=== PATIENT | female | born 1980 | race Caucasian/White ===

== ENCOUNTER 2018-10-12 10:23 | Emergency (ER) | payer MEDICARE, MEDICAID ==
--- NOTE | 2018-10-12 10:48 | EDM.PDOCBH ---
ED HPI GENERAL MEDICAL PROBLEM - General Chief Complaint: Behavioral/Psych Stated Complaint: SUICIDIAL Time Seen by Provider: 10/12/18 10:23 Source of Information: Reports: Patient, Family (friend, male) History Limitations: Reports: No Limitations - History of Present Illness INITIAL COMMENTS - FREE TEXT/NARRATIVE: 38 ye.o.w.f with a h/o depression, H/O suicidal ideation and DOD, came with a friend to the ed because of suicidal ideation, hearing voices. Pt did not take her psych meds for over a month. Her DAD a week ago. Pt feels nauseated because she is anxious (?). No trauma. Pt was moving in this area recently and has no Psych Doc yet. No F/C no physical pain. No other acute physical complains , pt denied . BP 133/81 RR 19 Pulse ox 99% on RA, Temp 36.8 Pulse 81 Onset Date: 10/07/18 Onset Time: 08:00 Duration: Day(s):, Intermittent Location: Reports: Generalized Quality: Reports: Same as Previous Episode Severity: Mild Improves with: Reports: Medication Worsens with: Reports: Other Context: Reports: Other (DAD a week ago) Associated Symptoms: Reports: Other - Related Data Allergies Allergy/AdvReac Type Severity Reaction Status Date / Time Penicillins Allergy Airway Verified 10/12/18 10:38 Tightness quetiapine [From Seroquel] Allergy Change Verified 10/12/18 10:38 Mental Status venlafaxine [From Effexor] Allergy Change Verified 10/12/18 10:38 Mental Status Home Meds: Home Meds ARIPiprazole [Abilify] 5 mg PO DAILY 10/12/18 [History] ClonazePAM [KlonoPIN] 0.5 mg PO DAILY 10/12/18 [History] Escitalopram [Lexapro] 10 mg PO DAILY 10/12/18 [History] Methylphenidate HCl [Ritalin] 10 mg PO DAILY 10/12/18 [History] OLANZapine [ZyPREXA] 5 mg PO DAILY 10/12/18 [History] lamoTRIgine [Lamictal] 100 mg PO DAILY 10/12/18 [History] ED ROS GENERAL - Review of Systems Review Of Systems: See Below Constitutional: Reports: No Symptoms HEENT: Reports: No Symptoms Respiratory: Reports: No Symptoms Cardiovascular: Reports: No Symptoms Endocrine: Reports: No Symptoms GI/Abdominal: Reports: Nausea : Reports: No Symptoms Musculoskeletal: Reports: No Symptoms Skin: Reports: No Symptoms Neurological: Reports: No Symptoms Psychiatric: Reports: Depression, Other (hears voices) Hematologic/Lymphatic: Reports: No Symptoms Immunologic: Reports: No Symptoms ED EXAM, BEHAVIORAL HEALTH - Physical Exam Exam: See Below Exam Limited By: No Limitations General Appearance: Alert, WD/WN, Mild Distress Eye Exam: Bilateral Eye: Normal Inspection Ears: Normal External Exam Nose: Normal Inspection, Normal Mucosa, No Blood Throat/Mouth: Normal Inspection, Normal Lips, Normal Voice, No Airway Compromise Head: Atraumatic, Normocephalic Neck: Normal Inspection, Supple, Non-Tender, Full Range of Motion Respiratory/Chest: No Respiratory Distress, Lungs Clear, Normal Breath Sounds, Chest Non-Tender Cardiovascular: Normal Peripheral Pulses, Regular Rate, Rhythm, No Edema, No Gallop, No Murmur GI/Abdominal: Normal Bowel Sounds, Soft, Non-Tender, No Organomegaly, No Abnormal Bruit, No Mass, Pelvis Stable (Female) Exam: Deferred Rectal (Female) Exam: Deferred Back Exam: Normal Inspection, Full Range of Motion Extremities: Normal Inspection, Normal Range of Motion, Non-Tender, No Pedal Edema Neurological: Alert, Normal Mood/Affect, CN II-XII Intact, Normal Cognition, No Motor/Sensory Deficits, Oriented x 3 Psychiatric: Alert, Depressed Mood, Flat Affect, Suicidal Thoughts Skin Exam: Warm, Dry, Intact, Normal color, No rash EKG INTERPRETATION EKG Date: 10/12/18 Time: 12:10 Rhythm: NSR Rate (Beats/Min): 70 [place]: Normal P-Wave: Present QRS: Normal ST-T: Normal QT: Normal Comparison: NA - No Prior EKG COURSE, BEHAVIORAL HEALTH COMP - Course Vital Signs: Last Vital Signs Temp 36.8 C 10/12/18 10:42 Pulse 92 10/12/18 10:42 Resp 18 10/12/18 10:42 BP 133/81 10/12/18 10:42 Pulse Ox 99 10/12/18 10:42 38 ye.o.w.f with a h/o depression, H/O suicidal ideation and DOD, came with a friend to the ed because of suicidal ideation, hearing voices. Pt did not take her psych meds for over a month. Her DAD a week ago. Pt feels nauseated because she is anxious (?). No trauma. Pt was moving in this area recently and has no Psych Doc yet. No F/C no physical pain. No other acute physical complains , pt denied . BP 133/81 RR 19 Pulse ox 99% on RA, Temp 36.8 Pulse 81 PE: WNWD W F with nausea, suicidal ideation Labs: CBC, BMP Nl, UDS pos Tricyclix ETOH neg ECG: NSR Impression: Suicidal ideation Tx: Refused anti nausea meds. Reexam: Pt was stable in the ED Plan: Dr. Gardner, Psychiatrist, at [facility] accepted the pt for further care, transfer by [employer] OKed Orders, Labs, Meds: Active Orders 24 hr Category Date Time Status EKG 12 Lead [EK] Routine Ther 10/12/18 12:06 Ordered Laboratory Tests 10/12/18 10/12/18 10/12/18 Range/Units 11:10 11:10 11:10 WBC 4.9 (4.5-12.0) X10-3/uL RBC 4.85 (3.23-5.20) x10(6)uL Hgb 14.9 (11.5-15.5) g/dL Hct 43.4 (30.0-51.3) % MCV 89.4 (80-96) fL MCH 30.7 (27.7-33.6) pg MCHC 34.3 (32.2-35.4) g/dL RDW 14.0 (11.5-15.5) % Plt Count 225 (125-369) X10(3)uL MPV 8.3 (7.4-10.4) fL Neut % (Auto) 61.7 (46-82) % Lymph % (Auto) 30.3 (13-37) % [place] % (Auto) 5.7 (4-12) % Eos % (Auto) 2 (1.0-5.0) % Baso % (Auto) 1 (0-2) % Neut # (Auto) 3.0 (1.6-8.3) # Lymph # (Auto) 1.5 (0.6-5.0) # [place] # (Auto) 0.3 (0.0-1.3) # Eos # (Auto) 0.1 (0.0-0.8) # Baso # (Auto) 0.0 (0.0-0.2) # Sodium 142 (135-145) mmol/L Potassium 4.3 (3.5-5.3) mmol/L Chloride 106 (100-110) mmol/L Carbon Dioxide 28 (21-32) mmol/L BUN 9 (7-18) mg/dL Creatinine 0.7 (0.55-1.02) mg/dL Est Cr Clr Drug Dosing TNP Estimated GFR (MDRD) > 60 (>60) BUN/Creatinine Ratio 12.9 (9-20) Glucose 81 (80-116) mg/dL Calcium 9.4 (8.6-10.2) mg/dL TSH, Ultra Sensitive 1.46 (0.36-3.74) IU/mL Urine HCG, Qual (NEGATIVE) Salicylates 3.6 (2.8-20.0) mg/dL Urine Opiates Screen (NEGATIVE) Ur Oxycodone Screen (NEGATIVE) Ur Propoxyphene Screen (NEGATIVE) Acetaminophen < 2 L (10-30) ug/mL Ur Barbituates Screen (NEGATIVE) Ur Tricyclics Screen (NEGATIVE) Ur Phencyclidine Scrn (NEGATIVE) Ur Amphetamine Screen (NEGATIVE) Urine MDMA Screen (NEGATIVE) U Benzodiazepines Scrn (NEGATIVE) U Cocaine Metab Screen (NEGATIVE) U Marijuana (THC) Screen (NEGATIVE) Ethyl Alcohol < 0.03 (<0.03) % 10/12/18 10/12/18 Range/Units 11:15 11:15 WBC (4.5-12.0) X10-3/uL RBC (3.23-5.20) x10(6)uL Hgb (11.5-15.5) g/dL Hct (30.0-51.3) % MCV (80-96) fL MCH (27.7-33.6) pg MCHC (32.2-35.4) g/dL RDW (11.5-15.5) % Plt Count (125-369) X10(3)uL MPV (7.4-10.4) fL Neut % (Auto) (46-82) % Lymph % (Auto) (13-37) % [place] % (Auto) (4-12) % Eos % (Auto) (1.0-5.0) % Baso % (Auto) (0-2) % Neut # (Auto) (1.6-8.3) # Lymph # (Auto) (0.6-5.0) # [place] # (Auto) (0.0-1.3) # Eos # (Auto) (0.0-0.8) # Baso # (Auto) (0.0-0.2) # Sodium (135-145) mmol/L Potassium (3.5-5.3) mmol/L Chloride (100-110) mmol/L Carbon Dioxide (21-32) mmol/L BUN (7-18) mg/dL Creatinine (0.55-1.02) mg/dL Est Cr Clr Drug Dosing Estimated GFR (MDRD) (>60) BUN/Creatinine Ratio (9-20) Glucose (80-116) mg/dL Calcium (8.6-10.2) mg/dL TSH, Ultra Sensitive (0.36-3.74) IU/mL Urine HCG, Qual Negative (NEGATIVE) Salicylates (2.8-20.0) mg/dL Urine Opiates Screen Negative (NEGATIVE) Ur Oxycodone Screen Negative (NEGATIVE) Ur Propoxyphene Screen Negative (NEGATIVE) Acetaminophen (10-30) ug/mL Ur Barbituates Screen Negative (NEGATIVE) Ur Tricyclics Screen Positive H (NEGATIVE) Ur Phencyclidine Scrn Negative (NEGATIVE) Ur Amphetamine Screen Negative (NEGATIVE) Urine MDMA Screen Negative (NEGATIVE) U Benzodiazepines Scrn Negative (NEGATIVE) U Cocaine Metab Screen Negative (NEGATIVE) U Marijuana (THC) Screen Negative (NEGATIVE) Ethyl Alcohol (<0.03) % Departure - Departure Time of Disposition: 14:16 Disposition: DC/Tfer to Psych Hosp/Unit 65 Condition: Fair Clinical Impression: Suicidal ideations - Discharge Information Referrals: Yg Nur MD [Primary Care Provider] - Forms: ED Department Discharge - My Orders Last 24 Hours: My Active Orders 10/12/18 12:06 EKG 12 Lead [EK] Routine - Assessment/Plan Last 24 Hours: My Active Orders 10/12/18 12:06 EKG 12 Lead [EK] Routine
[2018-10-12 11:31] LABS: ACETAMINOPHEN < 2 ug/mL (10-30)
== END 2018-10-12 14:30 ==
LOC: FB.ED 10:23
DX: F32.9 Major depressive disorder, single episode, unspecified (principal); F17.210 Nicotine dependence, cigarettes, uncomplicated; Z79.899 Other long term (current) drug therapy; Z88.0 Allergy status to penicillin; Z88.8 Allergy status to other drugs, medicaments and biological substances
CPT/HCPCS: 36415; 80048; 80305-QW; 81025; 84443; 85025; 93005; 99285; G0480

== ENCOUNTER 2018-10-22 20:57 | Emergency (ER) | payer MEDICARE, MEDICAID ==
[2018-10-22] MEDS ORDERED: Ondansetron 4 MG Tab.DIS PO ONE (22:27)
--- NOTE | 2018-10-22 22:32 | EDM.PDOC ---
ED HPI GENERAL MEDICAL PROBLEM - General Chief Complaint: General Stated Complaint: FLU Time Seen by Provider: 10/22/18 21:45 Source of Information: Reports: Patient History Limitations: Reports: No Limitations - History of Present Illness INITIAL COMMENTS - FREE TEXT/NARRATIVE: c/o N/V pt here with friend, onset sxs 2 AM, also frequent diarrhea not taken any meds no fever no pain Abdomen Pain Score (Numeric/FACES): 7 - Related Data Allergies Allergy/AdvReac Type Severity Reaction Status Date / Time Penicillins Allergy Airway Verified 10/22/18 21:44 Tightness quetiapine [From Seroquel] Allergy Change Verified 10/22/18 21:44 Mental Status venlafaxine [From Effexor] Allergy Change Verified 10/22/18 21:44 Mental Status Home Meds: Home Meds ARIPiprazole [Abilify] 5 mg PO DAILY 10/12/18 [History] ClonazePAM [KlonoPIN] 0.5 mg PO DAILY 10/12/18 [History] Escitalopram [Lexapro] 10 mg PO DAILY 10/12/18 [History] Methylphenidate HCl [Ritalin] 10 mg PO DAILY 10/12/18 [History] OLANZapine [ZyPREXA] 5 mg PO DAILY 10/12/18 [History] lamoTRIgine [Lamictal] 100 mg PO DAILY 10/12/18 [History] Metoclopramide HCl 10 mg PO Q6H #6 tablet 10/22/18 [Rx] Past Medical History Psychiatric History: Reports: Depression Social & Family History - Family History Family Medical History: Noncontributory - Tobacco Use Smoking Status *Q: Current Every Day Smoker Years of Tobacco use: 8 Packs/Tins Daily: 0.5 - Caffeine Use Caffeine Use: Reports: Coffee - Recreational Drug Use Recreational Drug Use: No ED ROS GENERAL - Review of Systems Review Of Systems: See Below Constitutional: Reports: No Symptoms HEENT: Reports: No Symptoms Respiratory: Reports: No Symptoms Cardiovascular: Reports: No Symptoms Endocrine: Reports: No Symptoms GI/Abdominal: Reports: Diarrhea, Nausea, Vomiting : Reports: No Symptoms Musculoskeletal: Reports: No Symptoms Skin: Reports: No Symptoms Neurological: Reports: No Symptoms Psychiatric: Reports: No Symptoms Hematologic/Lymphatic: Reports: No Symptoms Immunologic: Reports: No Symptoms ED EXAM, GENERAL - Physical Exam Exam: See Below Exam Limited By: No Limitations General Appearance: Alert, WD/WN, No Apparent Distress, Other (moves easily, not ill) Eye Exam: Bilateral Eye: Normal Inspection Ears: Normal External Exam, Normal Canal, Hearing Grossly Normal, Normal TMs Nose: Normal Inspection, Normal Mucosa, No Blood Throat/Mouth: Normal Inspection, Normal Lips, Normal Teeth, Normal Gums, Normal Oropharynx, Normal Voice, No Airway Compromise Head: Atraumatic, Normocephalic Neck: Normal Inspection, Supple, Non-Tender, Full Range of Motion. No: Lymphadenopathy (R), Lymphadenopathy (L) Respiratory/Chest: No Respiratory Distress, Lungs Clear, Normal Breath Sounds, No Accessory Muscle Use, Chest Non-Tender Cardiovascular: Regular Rate, Rhythm, No Edema, No Gallop, No Murmur, No Rub GI/Abdominal: Normal Bowel Sounds, Soft, Non-Tender, No Distention Back Exam: Normal Inspection Extremities: Normal Inspection, Normal Range of Motion, Non-Tender, No Pedal Edema Neurological: Alert, Oriented, CN II-XII Intact, Normal Cognition, Normal Gait, No Motor/Sensory Deficits Psychiatric: Normal Affect, Normal Mood Skin Exam: Warm, Dry, Intact, Normal Color, No Rash Lymphatic: No Adenopathy Course - Vital Signs Last Recorded V/S: Last Vital Signs Temp 37.1 C 10/22/18 20:57 Pulse 92 10/22/18 20:57 Resp 18 10/22/18 20:57 BP 124/72 10/22/18 20:57 Pulse Ox 100 10/22/18 20:57 Departure - Departure Time of Disposition: 22:27 Disposition: Home, Self-Care 01 Condition: Good Clinical Impression: Viral gastroenteritis - Discharge Information *PRESCRIPTION DRUG MONITORING PROGRAM REVIEWED*: No *COPY OF PRESCRIPTION DRUG MONITORING REPORT IN PATIENT ZACH: No Prescriptions: Metoclopramide HCl 10 mg PO Q6H #6 tablet Instructions: Viral Gastroenteritis, Adult Referrals: Yg Nur MD [Primary Care Provider] - Additional Instructions: For nausea, take metoclopramide 10 mg 1 tab every 6 hours as needed. Increase fluids. Rest. Use good handwashing. See your doctor in 2 days if not better. Return to ED if feeling worse.
== END 2018-10-22 22:38 | disposition home or self-care (01) ==
LOC: FB.ED 20:57
DX: A08.4 Viral intestinal infection, unspecified (principal); F32.9 Major depressive disorder, single episode, unspecified; F17.210 Nicotine dependence, cigarettes, uncomplicated; Z88.0 Allergy status to penicillin; Z88.8 Allergy status to other drugs, medicaments and biological substances
CPT/HCPCS: 87804; 99284; A9270

== ENCOUNTER 2018-11-22 11:15 | Emergency (ER) | payer MEDICARE, MEDICAID ==
--- NOTE | 2018-11-22 11:22 | EDM.PDOCBH ---
ED HPI GENERAL MEDICAL PROBLEM - General Stated Complaint: SUICIDIAL THOUGHTS AND HEARING VOICES Time Seen by Provider: 11/22/18 11:19 Source of Information: Reports: Patient, Family History Limitations: Reports: No Limitations - History of Present Illness INITIAL COMMENTS - FREE TEXT/NARRATIVE: 38 y.o.w.f with H/O depression, came to the Ed due to suicidal ideation with a plan to take a lot of pills(?). Denies N/V/D or any other acute medical issues. BP 144/74 Pulse 80 RR 16 Pulse ox 98% on RA Temp 36.8 Onset Date: 11/21/18 Onset Time: 18:00 Duration: Hour(s):, Intermittent Location: Reports: Generalized Quality: Reports: Other (suicidal ideation) Severity: Moderate Improves with: Reports: Other Worsens with: Reports: Other Context: Reports: Other (suicidal ideation) Generalized Pain Score (Numeric/FACES): 7 - Related Data Allergies Allergy/AdvReac Type Severity Reaction Status Date / Time acetaminophen [From Lortab] Allergy Other Verified 11/22/18 13:07 bee venom protein (honey bee) Allergy Other Verified 11/22/18 13:07 hydrocodone [From Lortab] Allergy Other Verified 11/22/18 13:07 Penicillins Allergy Airway Verified 11/22/18 11:44 Tightness quetiapine [From Seroquel] Allergy Change Verified 11/22/18 11:44 Mental Status venlafaxine [From Effexor] Allergy Change Verified 11/22/18 11:44 Mental Status Home Meds: Home Meds ClonazePAM [KlonoPIN] 0.5 mg PO BID PRN 10/12/18 [History] Escitalopram [Lexapro] 10 mg PO DAILY 10/12/18 [History] lamoTRIgine [Lamictal] 100 mg PO BEDTIME 10/12/18 [History] ARIPiprazole [Abilify] 15 mg PO BEDTIME 11/22/18 [History] Melatonin 3 mg PO BEDTIME PRN 11/22/18 [History] Prazosin [Minpress] 1 mg PO BEDTIME 11/22/18 [History] Past Medical History Psychiatric History: Reports: Depression Social & Family History - Family History Family Medical History: Noncontributory - Caffeine Use Caffeine Use: Reports: Coffee ED ROS GENERAL - Review of Systems Review Of Systems: See Below Constitutional: Reports: No Symptoms HEENT: Reports: No Symptoms Respiratory: Reports: No Symptoms Cardiovascular: Reports: No Symptoms Endocrine: Reports: No Symptoms GI/Abdominal: Reports: No Symptoms : Reports: No Symptoms Musculoskeletal: Reports: No Symptoms Skin: Reports: No Symptoms Neurological: Reports: No Symptoms Psychiatric: Reports: Suicidal Ideation Hematologic/Lymphatic: Reports: No Symptoms Immunologic: Reports: No Symptoms ED EXAM, BEHAVIORAL HEALTH - Physical Exam Exam: See Below Exam Limited By: No Limitations General Appearance: Alert, WD/WN, No Apparent Distress Eye Exam: Bilateral Eye: Normal Inspection Ears: Normal External Exam Nose: Normal Inspection Throat/Mouth: Normal Inspection Head: Atraumatic, Normocephalic Neck: Normal Inspection, Supple, Non-Tender Respiratory/Chest: No Respiratory Distress, Lungs Clear, Normal Breath Sounds Cardiovascular: Normal Peripheral Pulses, Regular Rate, Rhythm GI/Abdominal: Normal Bowel Sounds, Soft, Non-Tender, No Organomegaly (Female) Exam: Deferred Rectal (Female) Exam: Deferred Back Exam: Normal Inspection, Full Range of Motion Extremities: Normal Inspection, Normal Range of Motion, Non-Tender, No Pedal Edema Neurological: Alert, Normal Mood/Affect, CN II-XII Intact, Normal Cognition, No Motor/Sensory Deficits, Oriented x 3 Psychiatric: Alert, Normal Cognition, Depressed Mood, Suicidal Thoughts Skin Exam: Warm, Dry, Intact, Normal color, No rash EKG INTERPRETATION EKG Date: 11/22/18 Time: 13:35 Rhythm: NSR Rate (Beats/Min): 72 [place]: Normal P-Wave: Present QRS: Normal ST-T: Normal QT: Normal Comparison: NA - No Prior EKG COURSE, BEHAVIORAL HEALTH COMP - Course Vital Signs: Last Vital Signs Temp 36.3 C 11/22/18 13:34 Pulse 73 11/22/18 13:49 Resp 18 11/22/18 13:34 BP 152/78 H 11/22/18 13:49 Pulse Ox 100 11/22/18 13:34 38 y.o.w.f with H/O depression, came to the Ed due to suicidal ideation with a plan to take a lot of pills(?). Denies N/V/D or any other acute medical issues. BP 144/74 Pulse 80 RR 16 Pulse ox 98% on RA Temp 36.8 PE: Morbid obes 38 y.o.w.f with suicdal ideation labs: CBC, BMP UDS, Salicilate and acetaminophen neg. Pos pos for Tricyclics, HCG neg Impression: Suicidal ideation Tx: None in the ed Reexam: pt was stable in the ED Plan: Placement Orders, Labs, Meds: Active Orders 24 hr Category Date Time Status EKG 12 Lead [EK] Routine Ther 11/22/18 12:58 Ordered Laboratory Tests 11/22/18 11/22/18 11/22/18 Range/Units 11:47 11:47 11:48 WBC 6.7 (4.5-12.0) X10-3/uL RBC 5.08 (3.23-5.20) x10(6)uL Hgb 15.2 (11.5-15.5) g/dL Hct 45.6 (30.0-51.3) % MCV 89.7 (80-96) fL MCH 29.8 (27.7-33.6) pg MCHC 33.3 (32.2-35.4) g/dL RDW 12.9 (11.5-15.5) % Plt Count 276 (125-369) X10(3)uL MPV 8.5 (7.4-10.4) fL Neut % (Auto) 57.2 (46-82) % Lymph % (Auto) 31.0 (13-37) % [place] % (Auto) 8.2 (4-12) % Eos % (Auto) 2 (1.0-5.0) % Baso % (Auto) 1 (0-2) % Neut # (Auto) 3.9 (1.6-8.3) # Lymph # (Auto) 2.1 (0.6-5.0) # [place] # (Auto) 0.5 (0.0-1.3) # Eos # (Auto) 0.1 (0.0-0.8) # Baso # (Auto) 0.1 (0.0-0.2) # Sodium (135-145) mmol/L Potassium (3.5-5.3) mmol/L Chloride (100-110) mmol/L Carbon Dioxide (21-32) mmol/L BUN (7-18) mg/dL Creatinine (0.55-1.02) mg/dL Est Cr Clr Drug Dosing mL/min Estimated GFR (MDRD) (>60) BUN/Creatinine Ratio (9-20) Glucose (80-116) mg/dL Calcium (8.6-10.2) mg/dL TSH, Ultra Sensitive (0.36-3.74) IU/mL Urine HCG, Qual Negative (NEGATIVE) Salicylates (2.8-20.0) mg/dL Urine Opiates Screen Negative (NEGATIVE) Ur Oxycodone Screen Negative (NEGATIVE) Ur Propoxyphene Screen Negative (NEGATIVE) Acetaminophen (10-30) ug/mL Ur Barbituates Screen Negative (NEGATIVE) Ur Tricyclics Screen Positive H (NEGATIVE) Ur Phencyclidine Scrn Negative (NEGATIVE) Ur Amphetamine Screen Negative (NEGATIVE) Urine MDMA Screen Negative (NEGATIVE) U Benzodiazepines Scrn Negative (NEGATIVE) U Cocaine Metab Screen Negative (NEGATIVE) U Marijuana (THC) Screen Negative (NEGATIVE) Ethyl Alcohol (<0.03) % 11/22/18 11/22/18 Range/Units 11:48 11:48 WBC (4.5-12.0) X10-3/uL RBC (3.23-5.20) x10(6)uL Hgb (11.5-15.5) g/dL Hct (30.0-51.3) % MCV (80-96) fL MCH (27.7-33.6) pg MCHC (32.2-35.4) g/dL RDW (11.5-15.5) % Plt Count (125-369) X10(3)uL MPV (7.4-10.4) fL Neut % (Auto) (46-82) % Lymph % (Auto) (13-37) % [place] % (Auto) (4-12) % Eos % (Auto) (1.0-5.0) % Baso % (Auto) (0-2) % Neut # (Auto) (1.6-8.3) # Lymph # (Auto) (0.6-5.0) # [place] # (Auto) (0.0-1.3) # Eos # (Auto) (0.0-0.8) # Baso # (Auto) (0.0-0.2) # Sodium 136 (135-145) mmol/L Potassium 3.7 (3.5-5.3) mmol/L Chloride 103 (100-110) mmol/L Carbon Dioxide 26 (21-32) mmol/L BUN 11 (7-18) mg/dL Creatinine 0.8 (0.55-1.02) mg/dL Est Cr Clr Drug Dosing 76.89 mL/min Estimated GFR (MDRD) > 60 (>60) BUN/Creatinine Ratio 13.8 (9-20) Glucose 86 (80-116) mg/dL Calcium 9.2 (8.6-10.2) mg/dL TSH, Ultra Sensitive 1.72 (0.36-3.74) IU/mL Urine HCG, Qual (NEGATIVE) Salicylates 4.2 (2.8-20.0) mg/dL Urine Opiates Screen (NEGATIVE) Ur Oxycodone Screen (NEGATIVE) Ur Propoxyphene Screen (NEGATIVE) Acetaminophen < 2 L (10-30) ug/mL Ur Barbituates Screen (NEGATIVE) Ur Tricyclics Screen (NEGATIVE) Ur Phencyclidine Scrn (NEGATIVE) Ur Amphetamine Screen (NEGATIVE) Urine MDMA Screen (NEGATIVE) U Benzodiazepines Scrn (NEGATIVE) U Cocaine Metab Screen (NEGATIVE) U Marijuana (THC) Screen (NEGATIVE) Ethyl Alcohol < 0.03 (<0.03) % Departure - Departure Time of Disposition: 15:18 Disposition: DC/Tfer to Psych Hosp/Unit 65 Condition: Good Clinical Impression: Suicidal ideation - Discharge Information Referrals: Yg Nur MD [Primary Care Provider] - - My Orders Last 24 Hours: My Active Orders 11/22/18 12:58 EKG 12 Lead [EK] Routine - Assessment/Plan Last 24 Hours: My Active Orders 11/22/18 12:58 EKG 12 Lead [EK] Routine
[2018-11-22 12:12] LABS: ACETAMINOPHEN < 2 ug/mL (10-30)
== END 2018-11-22 15:43 ==
LOC: FB.ED 11:15
DX: F32.9 Major depressive disorder, single episode, unspecified (principal); Z88.8 Allergy status to other drugs, medicaments and biological substances; Z88.0 Allergy status to penicillin; Z91.030 Bee allergy status; Z79.899 Other long term (current) drug therapy
CPT/HCPCS: 36415; 80048; 80305; 81025; 84443; 85025; 93005; 99285; G0480